=== PATIENT | female | born 1990 | race Caucasian/White ===

== ENCOUNTER 2025-03-29 19:51 | Emergency (ER) | payer BC, SELFPAY ==
[2025-03-29 19:57] VITALS: BP 149/79
[2025-03-29 20:15] LABS: Hematocrit 35.4 % (37.0-47.0); Hemoglobin 11.8 g/dL (12.0-16.0); Mean Corp Hgb Conc. 33.3 g/dL (33.0-37.0); Mean Corpuscular Volume 84.3 fL (81.0-99.0); Nucleated Red Blood Cells % 0 %; Platelet Count 332 10^3/uL (130-400); Red Cell Dist. Width 12.2 % (11.5-14.5)
[2025-03-29 20:40] LABS: ALT (SGPT) 23 U/L (0-35); AST (SGOT) 21 U/L (14-36); Albumin 4.0 g/dl (3.5-5.0); Alkaline Phosphatase 59 U/L (38-126); Blood Urea Nitrogen 23 mg/dl (7-17); Calcium 9.0 mg/dl (8.4-10.2); Carbon Dioxide 24 mmol/L (22-30); Chloride 108 mmol/L (98-107); Glucose 119 mg/dl (70-99); Potassium 4.3 mmol/L (3.5-5.1); Sodium 138 mmol/L (135-145); Total Protein 7.0 g/dl (6.3-8.2); eGFR > 60.00
[2025-03-29 21:33] VITALS: BMI 34.4
[2025-03-29 21:36] VITALS: BP 120/81
--- NOTE | 2025-03-29 22:23 | ED.GENMED ---
History of Present Illness
General
Chief Complaint: Musculo-Skeletal Complaint
Source: patient
Time Seen by Provider: 03/29/25 21:50
History of Present Illness
History of Present Illness:
35-year-old female with no significant past medical history presents to the ER for evaluation of right-sided neck pain that has been ongoing since this past Wednesday stating she believes she slept on it wrong but has since had continued pain prompting
her to go to urgent care earlier today who prescribed the patient naproxen and Flexeril which she took with no relief. Patient states that the pain is sharp and sometimes burning and will intermittently radiate down the back of the right arm. She
denies any overuse injury, trauma, focal weakness or numbness, headaches, visual disturbances or any other concerns. Urgent care did not do any imaging. No fevers or infectious symptoms. Denies any history of similar. Pain does seem to be
reproducible with certain positions noting sitting or laying flat make it worse, standing and holding her arm at her side seem to make it a little bit better. Also of note patient did recently travel to [place] in [facility], returning home
within the week
Past History
Past History
ED Past Medical History: None
ED Past Surgical History: None
Social History
Tobacco: Non-smoker
Alcohol: Occasional
Drug: None
Personal:
Living: with family
Review of Systems
Review of Systems
All Other Systems: ROS reviewed and negative except as documented in HPI and ROS
Phy Exam
Physical Exam
Physical Exam:
GENERAL: Alert , in no apparent distress
HEAD: Normocephalic atraumatic
EYE: conjunctiva clear
NECK: Supple, no significant adenopathy. Just proximal to the scapula over the trapezius muscular distribution. No rashes or ecchymosis. No midline tenderness
ENT: o/p clr, mmm.
CARDIAC: Regular rate and rhythm
LUNGS: Clear breath sounds bilaterally, no acute respiratory distress, no wheezes/rales/rhonchi
NEUROLOGICAL: Alert and oriented
SKIN: Warm and dry, skin intact.
MUSCULOSKELETAL: well perfused.
PSYCH: Normal and appropriate interaction.
Mildly reproducible tenderness
Scores
Heart Failure Risk
Heart Failure Risk Score: Not Applicable
Heart Score for Chest Pain Patients
STEMI patient?: Not applicable
Withdrawal Assessment of Alcohol
Withdrawal Assessment Completed?: Not applicable
Course
Orders/Labs/Results
Orders:
Orders
03/29/25 20:09
CBC/With Diff [Complete Blood Count/With Diff] Urgent
CMP [Comprehensive Metabolic Panel] Urgent
03/29/25 22:05
Lidocaine [Lidocaine 4% Patch] 1 patch TOPICAL NOW STA
Apply Lidocaine patch(s) to:: left upper back/shoulder
Naproxen [Naprosyn] 500 mg PO NOW STA
Oxycodone/Acetaminophen [Percocet 5/325] 1 tablet PO NOW STA
Abnormal Lab Results
03/29/25
20:09
Hgb 11.8 L g/dL
(12.0-16.0)
Hct 35.4 L %
(37.0-47.0)
MPV 10.7 H fL
(7.4-10.4)
Absolute Monos (auto) 0.7 H 10^3/uL
(0.1-0.6)
Monocytes % 13.0 H %
(1.7-9.3)
Chloride 108 H mmol/L
(98-107)
BUN 23 H mg/dl
(7-17)
Glucose 119 H mg/dl
(70-99)
03/29/25 20:09
03/29/25 20:09
Vital Signs
Initial and Last Documented VS:
Initial Vital Signs
Temp Pulse Resp BP Pulse Ox
98.6 F 90 15 149/79 99
03/29/25 19:57 03/29/25 19:57 03/29/25 19:57 03/29/25 19:57 03/29/25 19:57
Last Documented Vital Signs
Temp Pulse Resp BP Pulse Ox
98.6 F 74 18 118/75 98
03/29/25 19:57 03/29/25 23:30 03/29/25 23:30 03/29/25 23:30 03/29/25 23:30
MDM/Problems Addressed
Differential Diagnosis Includes:
Cervical muscle strain
Spinal stenosis
Radiculopathy
Disc herniation
PE considered given recent travel however there is no chest pain, shortness of breath, tachypnea, coughing or any other symptoms that would be suggestive of PE
No signs of infection
MDM/Problems Addressed:
35-year-old female presenting to the ER for evaluation of right lateral neck pain ongoing for the last 5 days. Went to urgent care today and has not had any relief with naproxen or Flexeril. No imaging was done so imaging was offered here however
patient declines. Will treat here with Percocet, topical lidocaine and a dose of naproxen as well. Anticipate need for outpatient workup if symptoms persist. Will send home with pain medication for further pain relief.
*Pulse Oximetry
SaO2: 99
Oxygen Mode of Delivery: Room air
Patient hypoxic: no
*Critical Care Note
Total Time (30-74mins, 75-104mins- exclusive of procedures): Not Applicable
Patient Management
Escalation/DeEscalation of care consider admission/obs:
Patient's pain improved although she does still endorse the mild pain. At this time I do think it is reasonable for patient to be discharged home. Prescription for Percocet and Medrol Dosepak sent to pharmacy. Patient will follow-up with primary
care provider. Aware of return precautions to the ER.
ED Attending Note
-
Portions of this chart may have been created with voice recognition software.� Occasional wrong word or��sound alike� substitutions may have occurred due to the inherent limitations of voice recognition software.
Discharge Plan
Departure
Patient Disposition: Home (Routine Discharge)
Date of Disposition: 03/29/25
Time of Disposition: 23:50
Patient with high blood pressure during this ER visit?: No
Discharge Problem:
Cervicalgia
Instructions: Neck pain - ED (DC)
Prescriptions:
New
oxycodone-acetaminophen [Percocet] 5-325 mg tablet
1 tab PO Q6HPRN PRN (Reason: pain) Qty: 8 0RF
methylprednisolone [Medrol ([place])] 4 mg tablets,dose pack
4 mg PO DIRECTED Qty: 21 0RF
No Action
prenat.vits,leonides,nkv-zguw-dhlua Tablet
1 tab PO DAILY
Humira 40 mg/0.8 mL Syringe Kit
40 mg SC Q2W
acetaminophen 325 mg Tablet
650 mg PO Q4HPRN PRN (Reason: mild pain) Qty: 20 0RF
ibuprofen 600 mg Tablet
600 mg PO Q6HPRN PRN (Reason: moderate pain/cramps) Qty: 20 0RF
Referrals:
Ainsley Riddle, DO [Family Provider, Family Practice]
Interventions
Interventions:
*Risk Screen - Suicide Last Done: 03/29/25 19:57
*General Assessment Last Done: 03/29/25 19:57
*Neglect/Abuse Screening Last Done: 03/29/25 19:57
*ED- Fall Risk Assessment Last Done: 03/29/25 21:43
*ED COVID-19 Vaccine History Last Done: 03/29/25 19:57
*Nursing Disposition Last Done: 03/30/25 00:32
ED-Musculoskeletal Assessment Last Done: 03/29/25 21:43
Discharge Date and Time
Discharge Date/Time: 03/29/25 23:45
Print Language: GREENLANDIC
[2025-03-29] MEDS: LIDOCAINE 4% PATCH 1 PATCH TOPICAL (22:27)
[2025-03-29] MEDS: PERCOCET 5/325 1 TABLET PO (22:28)
[2025-03-29] MEDS: NAPROSYN 500 MG PO (22:28)
[2025-03-29 22:35] VITALS: BP 118/75
[2025-03-29 23:30] VITALS: BP 118/75
== END 2025-03-29 23:45 | disposition home or self-care (01) ==
LOC: EMR 19:51
PROVIDERS: Emergency Medicine; EMERGENCY PHYSICIAN Student in an Organized Health Care Education/Training Program; FAMILY PHYSICIAN Family Medicine
DX: M54.2 Cervicalgia (principal)
CPT/HCPCS: 99283; 80053; 85025

== ENCOUNTER → 2025-04-05 07:40 | Outpatient (REF) | payer BC, SELFPAY | LOC: RAD 07:40 | PROVIDERS: ATTENDING PHYSICIAN Nurse Practitioner Family | DX: M54.12 Radiculopathy, cervical region (principal) | CPT/HCPCS: 72050; 73030 ==